=== PATIENT | female | born 1980 | race Caucasian/White ===

== ENCOUNTER 2023-08-28 23:33 | Emergency (ER) | payer MEDICARE, OTHER ==
[2023-08-29] MEDS ORDERED: Ketorolac Tromethamine 30 MG (1 mL) VIAL ONE (00:16)
[2023-08-29] MEDS ORDERED: fentaNYL 50 mcg/mL 1 mL Vial ONE (01:34)
[2023-08-29] MEDS ORDERED: HYDROcodone/Acetaminophen 5/325 mg Tablet ONE (04:05)
== END 2023-08-29 04:09 | disposition home or self-care (01) ==
LOC: ERS 23:33
DX: S83.92XA Sprain of unspecified site of left knee, initial encounter (principal); F17.210 Nicotine dependence, cigarettes, uncomplicated; W19.XXXA Unspecified fall, initial encounter
CPT/HCPCS: 73560; 96374; 96375; 99284; J3010; J1885